=== PATIENT | male | born 1955 | race Caucasian/White ===

== ENCOUNTER 2021-06-24 09:43 | Inpatient (IN) ==
[2021-06-24 10:27] LABS: Eosinophils % 0.1 %; Hematocrit 44.2 % (37.5-50.1); Immature Granulocytes % 0.4 % (0-4); Lymphocytes # 0.4 K/mcL (0.6-4.6); Lymphocytes % 3.9 %; Mean Corpuscular HGB Conc 33.9 g/dL (31.6-35.5); Mean Corpuscular Hemoglobin 33.4 pg (28.0-33.3); Mean Corpuscular Volume 98.4 fL (83.0-100.0); Mean Platelet Volume 10.1 fL (9.4-12.4); Monocytes # 0.9 K/mcL (0.0-1.3); Monocytes % 8.3 %; Neutrophils # 9.6 K/mcL (1.6-8.9); Platelet Count 217 K/mcL (140-400); Red Blood Count 4.49 M/mcL (4.19-5.50); Red Cell Distribution Width 12.8 % (11.5-14.5); Segmented Neutrophils % 87.3 %
[2021-06-24 10:34] LABS: INR 1.2; Prothrombin Time 13.6 Seconds (9.4-12.1)
[2021-06-24 10:37] LABS: Activated Partial Thrombo Time 22.9 Seconds (26.0-36.0)
[2021-06-24] MEDS ORDERED: 0.9 % Sodium Chloride 1,000 ML IVC ONE ×2 (10:55→15:53)
[2021-06-24 10:56] LABS: Alanine Aminotransferase 48 Units/L (7-52); Albumin 3.7 g/dL (3.5-5.7); Albumin/Globulin Ratio 1.1 (1.1-2.2); Alkaline Phosphatase 134 Units/L (34-104); Aspartate Amino Transferase 56 Units/L (13-39); BUN/Creatinine Ratio 54 (6-26); Bilirubin,Direct 0.3 mg/dL (0.0-0.2); Bilirubin,Indirect 0.5 mg/dL (0.0-1.0); Bilirubin,Total 0.8 mg/dL (0.3-1.0); Blood Urea Nitrogen 69 mg/dL (8-23); Calcium 17.3 mg/dL (8.6-10.3); Carbon Dioxide 32 mEq/L (23-29); Chloride 94 mEq/L (98-107); Ethanol < 10 mg/dL (Less than 10); Globulin 3.3 g/dL (2.4-3.5); Glucose 112 mg/dL (70-105); Osmolality,Calculated 295 (280-300); Potassium 4.3 mEq/L (3.5-5.1); Sodium 132 mEq/L (136-145); Troponin I 0.13 ng/mL (< 0.04); eGFR For African Americans > 60 (> 60); eGFR For Non-African Americans 56 (> 60)
[2021-06-24 11:26] LABS: Bacteria,Urine Few per hpf (None-Few); Bilirubin,Urine Negative (Negative); Blood,Urine Trace (Negative); Clarity,Urine Clear (Clear); Color,Urine Light-Yellow (Yellow); Glucose,Urine (UA) Normal (Normal); Ketones,Urine Negative (Negative); Leukocyte Esterase,Urine Negative (Negative); Mucus,Urine Few per lpf (None-Few); Nitrite,Urine Negative (Negative); Protein,Urine 30 mg/dL (Neg-Trace); RBC,Urine 0-3 per hpf (0-3); Specific Gravity,Urine 1.019 (1.010-1.025); Squamous Epithelial Cell,Urine Few per hpf (None-Few); Urobilinogen,Urine Normal (Normal); WBC,Urine 0-3 per hpf (0-3)
[2021-06-24 11:36] LABS: Amphetamine Screen,Urine Negative ng/mL (Cutoff=1000); Barbiturate Screen,Urine Negative ng/mL (Cutoff=200); Benzodiazepines Screen,Urine Negative ng/mL (Cutoff=200); Cannabinoid Screen,Urine Positive ng/mL (Cutoff = 50); Cocaine Screen,Urine Negative ng/mL (Cutoff= 300); Opiate Screen,Urine Negative ng/mL (Cutoff=300); Phencyclidine Screen,Urine Negative ng/mL (Cutoff=25)
[2021-06-24] MEDS ORDERED: Zoledronic Acid (Zometa) 4 MG in 0.9 % Sodium Chloride 100 ML IV ONE (12:03)
[2021-06-24] MEDS ORDERED: Calcitonin-Salmon, Synthetic 400 UNIT/2 ML VIAL SQ ONE (12:03)
[2021-06-24] MEDS ORDERED: Melatonin 3 MG TABLET PO PRN (12:04)
[2021-06-24] MEDS ORDERED: Mag Hydrox/Al Hydrox/Simeth 30 ML UDC PO PRN (12:04)
[2021-06-24] MEDS ORDERED: Naloxone 0.4 MG/ML INJ IVP PRN (12:04)
[2021-06-24] MEDS ORDERED: Ondansetron ODT 4 MG TAB.RAPDIS SL PRN (12:04)
[2021-06-24] MEDS ORDERED: Isovue-370 500 ML BOTTLE IVP ONE (13:25)
[2021-06-24] MEDS: *HR* LORazepam 2 MG/ML VIAL IVP PRN ×2 (15:02→21:16)
[2021-06-24] MEDS: Isovue-370 500 ML BOTTLE IVP ONE ×2 (15:07→22:33)
[2021-06-24] MEDS: 0.9 % Sodium Chloride 1,000 ML IVC SCH ×2 (15:07→21:45)
[2021-06-24] MEDS: Piperacillin/Tazobactam 3.375 GM in 0.9 % Sodium Chloride Mini Bag 100 ML IVPB SCH ×2 (15:52→23:52)
[2021-06-24] MEDS: *HR* Heparin 5,000 UNIT/ML VIAL SQ SCH (16:07)
[2021-06-24] MEDS: *HR* Metoprolol 5 MG/5 ML VIAL IVP PRN ×3 (16:08→23:52)
[2021-06-24 17:22] LABS: Troponin I 0.11 ng/mL (< 0.04)
[2021-06-24 23:56] LABS: Troponin I 0.09 ng/mL (< 0.04)
[2021-06-25] MEDS ORDERED: *HR* Metoprolol 5 MG/5 ML VIAL IVP ONE ×2 (00:22→02:47)
[2021-06-25] MEDS ORDERED: *HR* Labetalol 20 MG/4 ML SYRINGE IVP PRN (00:29)
[2021-06-25 00:36] LABS: Calcium 13.9 mg/dL (8.6-10.3)
[2021-06-25] MEDS ORDERED: Furosemide 20 MG/2 ML VIAL IVP ONE ×2 (00:58→02:46)
[2021-06-25] MEDS ORDERED: *HR* Labetalol 20 MG/4 ML SYRINGE IVP ONE (01:05)
[2021-06-25 01:13] LABS: Hematocrit 42.8 % (37.5-50.1); Hemoglobin 14.4 g/dL (12.9-16.9); Mean Corpuscular HGB Conc 33.6 g/dL (31.6-35.5); Mean Corpuscular Hemoglobin 33.8 pg (28.0-33.3); Mean Corpuscular Volume 100.5 fL (83.0-100.0); Platelet Count 208 K/mcL (140-400); Red Blood Count 4.26 M/mcL (4.19-5.50); White Blood Count 9.5 K/mcL (4.3-11.1)
[2021-06-25] MEDS: *HR* LORazepam 2 MG/ML VIAL IVP PRN ×3 (01:22→17:06)
[2021-06-25 01:48] LABS: BUN/Creatinine Ratio 51 (6-26); Blood Urea Nitrogen 48 mg/dL (8-23); Carbon Dioxide 25 mEq/L (23-29); Chloride 103 mEq/L (98-107); Glucose 102 mg/dL (70-105); Magnesium 1.8 mg/dL (1.6-2.6); Osmolality,Calculated 295 (280-300); Sodium 136 mEq/L (136-145); eGFR For African Americans > 60 (> 60); eGFR For Non-African Americans > 60 (> 60)
[2021-06-25] MEDS ORDERED: Morphine Sulfate 2 MG/ML SYRINGE IVP ONE (04:40)
[2021-06-25] MEDS: *HR* Metoprolol 5 MG/5 ML VIAL IVP PRN ×2 (04:53→15:47)
[2021-06-25] MEDS: 0.9 % Sodium Chloride 1,000 ML IVC SCH ×2 (04:54→09:18)
[2021-06-25] MEDS: *HR* Heparin 5,000 UNIT/ML VIAL SQ SCH (05:35)
[2021-06-25] MEDS: Piperacillin/Tazobactam 3.375 GM in 0.9 % Sodium Chloride Mini Bag 100 ML IVPB SCH (09:17)
[2021-06-25] MEDS ORDERED: Morphine Sulfate 2 MG/ML SYRINGE IVP PRN ×2 (10:57→14:53)
[2021-06-25] MEDS ORDERED: Morphine Sulfate Oral CONC 10 MG/0.5 ML ORAL.SYG SL PRN ×2 (11:36→14:45)
[2021-06-25] MEDS: Morphine Sulfate 2 MG/ML SYRINGE IVP PRN ×2 (15:30→19:40)
[2021-06-25] MEDS: Haloperidol Lactate 5 MG/ML VIAL IVP SCH ×2 (17:08→19:39)
[2021-06-25 20:01] LABS: Adenovirus Not Detected (Not Detect); Bordetella Pertussis Not Detected (Not Detect); Chlamydophila pneumoniae Not Detected (Not Detect); Coronavirus 229E Not Detected (Not Detect); Coronavirus HKU1 Not Detected (Not Detect); Coronavirus NL63 Not Detected (Not Detect); Coronavirus OC43 Not Detected (Not Detect); Human Metapneumovirus Not Detected (Not Detect); Human Rhinovirus/Enterovirus Not Detected (Not Detect); Influenza A Subtype 2009 H1 Not Detected (Not Detect); Influenza B Not Detected (Not Detect); Mycoplasma pneumoniae Not Detected (Not Detect); Parainfluenza Virus 1 Not Detected (Not Detect); Parainfluenza Virus 2 Not Detected (Not Detect); Parainfluenza Virus 3 Not Detected (Not Detect); Parainfluenza Virus 4 Not Detected (Not Detect); Respiratory Syncytial Virus Not Detected (Not Detect); SARS-CoV-2 Not Detected (Not Detect)
[2021-06-26] MEDS: Haloperidol Lactate 5 MG/ML VIAL IVP SCH ×3 (00:14→13:25)
[2021-06-26] MEDS: *HR* LORazepam 2 MG/ML VIAL IVP PRN (04:38)
[2021-06-26] MEDS: Morphine Sulfate 2 MG/ML SYRINGE IVP PRN ×2 (04:38→07:55)
[2021-06-26] MEDS ORDERED: Atropine 1% Opth Drops 100 DROP/5 ML BOTTLE SL PRN (11:25)
[2021-06-26] MEDS ORDERED: Scopolamine Patch 1.5 MG PATCH.TD72 TD SCH (11:30)
[2021-06-26 14:28] VITALS: BP 105/67; PULSE 89; TEMP 98.2; O2SAT 92
== END 2021-06-26 18:24 | disposition expired | DRG 682 ==
LOC: EMEROOARM 09:43 → 3NENU 09:43 → SUATTDRO 12:36 → 3NENU 13:36
PROVIDERS: ADMIT Family Medicine; ATTEND Internal Medicine